=== PATIENT | male | born 1945 | race Caucasian/White ===

== ENCOUNTER 2018-02-28 14:48 | Emergency (ER) | payer OTHER, MEDICARE ==
[2018-02-28 15:49] LABS: ADD MAN DIFF? NO
[2018-02-28 15:51] LABS: BASO % 0 % (0-3); EOS # 0.2 x10^3/uL (0.0-0.7); EOS % 2 % (0-3); HEMATOCRIT 51.6 % (39.0-53.0); HEMOGLOBIN 17.7 g/dL (13.0-17.5); LYMPH # 1.3 x10^3/uL (1.0-4.8); LYMPH % 12 % (24-48); MEAN CORPUSCULAR HEMOGLOBIN 32 pg (25-35); MEAN CORPUSCULAR HGB CONC 34 g/dL (31-37); MEAN CORPUSCULAR VOLUME 92 fL (79-100); MONO # 0.7 x10^3/uL (0.0-1.1); MONO % 7 % (0-9); NEUT # 8.7 x10^3uL (1.8-7.7); NEUT % 80 % (31-73); PLATELET COUNT 200 x10^3/uL (140-400); RED BLOOD COUNT 5.61 x10^6/uL (4.30-5.70); RED CELL DISTRIBUTION WIDTH 13.6 % (11.5-14.5); WHITE BLOOD COUNT 10.9 x10^3/uL (4.0-11.0)
[2018-02-28 16:01] LABS: ANION GAP 5 (6-14); BLOOD UREA NITROGEN 14 mg/dL (8-26); BUN/CREATININE RATIO 12 (6-20); CALCIUM 9.2 mg/dL (8.5-10.1); CARBON DIOXIDE 31 mmol/L (21-32); CHLORIDE 103 mmol/L (98-107); CREATININE 1.2 mg/dL (0.7-1.3); GFR 59.9; GLUCOSE 121 mg/dL (70-99); SODIUM 139 mmol/L (136-145)
[2018-02-28 16:06] LABS: ALBUMIN 4.1 g/dL (3.4-5.0); ALBUMIN/GLOBULIN RATIO 1.2 (1.0-1.7); TOTAL PROTEIN 7.6 g/dL (6.4-8.2)
[2018-02-28 16:07] LABS: ALK PHOS 77 U/L (46-116); ALT (SGPT) 21 U/L (16-63); AST (SGOT) 17 U/L (15-37); TOTAL BILIRUBIN 1.2 mg/dL (0.2-1.0)
[2018-02-28 16:09] LABS: TROPONINI < 0.017 ng/mL (0.000-0.055)
== END 2018-02-28 17:35 | disposition home or self-care (01) ==
LOC: ER 14:48
DX: S09.90XA Unspecified injury of head, initial encounter (principal); M25.552 Pain in left hip; E11.9 Type 2 diabetes mellitus without complications; I25.2 Old myocardial infarction; Z90.49 Acquired absence of other specified parts of digestive tract; I25.10 Atherosclerotic heart disease of native coronary artery without angina pectoris; Z88.8 Allergy status to other drugs, medicaments and biological substances; W01.0XXA Fall on same level from slipping, tripping and stumbling without subsequent striking against object, initial encounter; Y93.89 Activity, other specified; Y99.8 Other external cause status; Y92.89 Other specified places as the place of occurrence of the external cause
CPT/HCPCS: 36415; 70450; 71045; 72125; 73502; 80053; 84484; 85025; 93005; 99285

== ENCOUNTER → 2018-07-19 | Outpatient (CLI) | payer MEDICARE, OTHER ==
[2018-05-21 11:00] VITALS: BP 143/86
[~2018-07-19] MED LIST: ASPI325T8 PO; ATOR20TA58 PO; CANA100T PO; CEFP200T PO; CLOP75TA PO; COLE625T12 PO; EMPA10TA PO; LISI-130 PO; LISI10TA2 PO; MELO15TA23 PO; METF500T16 PO; METO-239 PO; METO-269 PO; MULT-18 PO; OMEG1CAP6 PO; TEST200V3 IM; [UNRECOGNIZED DRUG - CODE] PO
--- NOTE | 2018-07-19 13:32 | KCIC ---
PQRS Compliance statement: One or more of the following individualized dose reduction techniques were utilized for this examination: 1. Automated exposure control. 2. Adjustment of the mA and/or kV according to patient size. 3. Use of iterative reconstruction technique. Indication:Hematuria. TECHNIQUE: CT abdomen and pelvis without IV contrast with multiplanar reformats. COMPARISON: 11/23/2004 FINDINGS: Limited evaluation of solid abdominal and pelvic organs due to lack of IV contrast. Heart is normal in size. No pericardial or pleural effusion. Clear lung bases. Noncontrast appearance of the liver, spleen, gallbladder, pancreas, adrenals within normal limits. No nephrolithiasis or hydronephrosis. No enlarged retroperitoneal or pelvic adenopathy. Small bilateral fat-containing inguinal hernia. Large amount of stool is seen in the rectosigmoid colon. No bowel obstruction. Urinary bladder shows no radiopaque stones. The prostate and seminal vesicles show no large mass. No pneumoperitoneum. No suspicious bony lesion. IMPRESSION: Limited evaluation of solid abdominal and pelvic organs due to lack of IV contrast. No nephrolithiasis or hydronephrosis. Electronically signed by: Nico Weber DO (07/19/2018 1:29 PM) [facility]
== END | disposition home or self-care (01) ==
LOC: KCIC CT 09:29
PROVIDERS: ATTEND Family Medicine
DX: R31.9 Hematuria, unspecified (principal); E11.9 Type 2 diabetes mellitus without complications; I10 Essential (primary) hypertension; Z79.01 Long term (current) use of anticoagulants
CPT/HCPCS: 74176

== ENCOUNTER → 2019-06-19 | Outpatient (CLI) | payer OTHER ==
[2018-05-21 11:00] VITALS: BP 143/86
[~2019-06-19] MED LIST changes: +CONTRAST GIVEN. MC PRN; +IOHEXOL 180 MG/ML 10 ML VIAL. IT ONE; +LIDOCAINE 1% Multi-Dose 20 ML VIAL. ID ONE
--- NOTE | 2019-06-19 16:32 | KCIC ---
Lumbar myelogram 06/19/2019 Clinical History: Low back pain which radiates down the right leg for one to 2 months. Technique: After the risks and benefits of the procedure were explained to the patient, written informed consent was obtained. The patient was placed prone on the fluoroscopy table and the lower back was prepped and draped in sterile fashion. 1% lidocaine was used as a local anesthetic. Under fluoroscopic guidance, the thecal sac of the lumbar cistern was punctured at the L4-5 level using 25-gauge Randi needle. After confirming clear CSF return, 18 cc of Omnipaque 180 were injected through the needle into the thecal sac of the lumbar cistern under fluoroscopic guidance. Following this the needle was removed and hemostasis achieved at the puncture site. A sterile bandage was placed on the skin puncture site. AP, bilateral oblique, lateral and standing neutral, flexion and extension lateral digital radiographs of the lumbar spine were obtained. Following this the patient was taken to CT where a CT scan of the lumbar spine was performed. This will be reported separately. Following the examinations the patient was sent home with an instruction sheet. The patient tolerated the procedure well and there were no immediate complications. The total fluoroscopic time for this procedure was 1 minute 6 seconds. 9 digital spot radiographs were obtained. Findings: Very mild S-shaped curvature of the thoracolumbar spine is seen. Degenerative changes consisting of varying degrees of disc space narrowing, vertebral endplate sclerosis and mild to moderate anterior and posterior vertebral body osteophyte formation are seen throughout the lumbar disc spaces. Mild anterior extradural defects are seen upon the contrast column at the L1-2 and L2-3 disc spaces. Moderate anterior and posterior extradural defects are seen upon the contrast column at the L3-4 and L4-5 levels. There is no evidence of complete block of contrast at any level involving the lumbar vertebrae. Degenerative changes are seen involving the facet joints throughout the mid and lower lumbar disc spaces. The alignment of the lumbar vertebrae is maintained on the flexion and extension images. IMPRESSION: Degenerative changes are seen throughout the lumbar spine as discussed above. Electronically signed by: Joaquin Jung MD (06/19/2019 4:29 PM) [email or web address]
--- NOTE | 2019-06-19 16:43 | KCIC ---
CT lumbar myelogram 06/19/2019 Clinical History: Low back pain which radiates down the right leg for the last 1-2 months. Technique: This study was performed after a lumbar myelogram, contiguous, 0.625 mm axial sections were obtained through the lumbar spine. 3 mm sagittal, coronal and axial reconstructed images were obtained. One or more of the following individualized dose reduction techniques were utilized for this study: 1. Automated exposure control. 2. Adjustment of the mA and/or kV according to patient size. 3. Use of iterative reconstruction technique. Findings: Comparison is made to the patient's lumbar myelogram performed earlier today. The sagittal and coronal reconstructed images demonstrate very mild S-shaped curvature of the thoracolumbar spine. Degenerative changes consisting of varying degrees of disc space narrowing, vertebral endplate sclerosis and mild to moderate anterior and posterior vertebral body osteophyte formation are seen throughout the lumbar disc spaces. Vacuum disc phenomenon are seen involving the L1-2, L2-3, L4-5 and L5-S1 discs. Atherosclerotic calcification of the abdominal aorta and its branches is noted. At the L1-2 disc space there is a mild to moderate generalized disc bulge. Degenerative changes are seen involving the facet joints bilaterally. There is mild ligament flavum hypertrophy bilaterally. These findings when combined result in mild to moderate central spinal canal stenosis. No neural foraminal stenosis is seen. At the L2-3 disc space is a moderate generalized disc bulge. This is eccentric to the left. Degenerative changes are seen involving the facet joints bilaterally. There is mild to moderate ligamentum flavum hypertrophy bilaterally. These findings when combined result in moderate to severe central spinal canal stenosis. Mild to moderate left greater than right neural foraminal stenosis is seen. At the L3-4 disc space there is a moderate generalized disc bulge. Degenerative changes are seen involving the facet joints bilaterally. There is mild to moderate ligamentum flavum hypertrophy bilaterally. These findings when combined result in moderate central spinal canal stenosis. Mild to moderate left greater than right neural foraminal stenosis is seen. At the L4-5 disc space there is a mild to moderate generalized disc bulge. Degenerative changes are seen involving the facet joints bilaterally. There is moderate ligamentum flavum hypertrophy bilaterally. These findings when combined result in mild central spinal canal stenosis. Moderate to severe right neural foraminal stenosis is seen. Mild to moderate left neural foraminal stenosis is noted. The L5-S1 disc space there is a mild to moderate generalized disc bulge. Degenerative changes are seen involving the facet joints bilaterally. Posterior vertebral body osteophyte formation is seen which extends into the neural foramen bilaterally. These findings when combined do not result in significant central spinal canal stenosis. Moderate bilateral neural foraminal stenosis is seen. Impression: The changes of degenerative disc disease are seen throughout the lumbar spine. These findings result in mild to moderate central spinal canal stenosis at L1-2, moderate to severe central spinal canal stenosis at L2-3, moderate central spinal canal stenosis at L3-4 and mild central spinal canal stenosis at L4-5. Mild to moderate left greater than right neural foraminal stenosis is seen at L2-3 and L3-4. Moderate to severe right neural foraminal stenosis is seen at L4-5. Mild to moderate left neural foraminal stenosis is seen at L4-5. Moderate bilateral neural foraminal stenosis is seen at L5-S1. Electronically signed by: Joaquin Jung MD (06/19/2019 4:40 PM) [email or web address]
== END | disposition home or self-care (01) ==
LOC: KCIC 09:02
PROVIDERS: ATTEND Family Medicine
DX: M47.896 Other spondylosis, lumbar region (principal); M25.78 Osteophyte, vertebrae; M54.41 Lumbago with sciatica, right side; I25.10 Atherosclerotic heart disease of native coronary artery without angina pectoris; M48.061 Spinal stenosis, lumbar region without neurogenic claudication; M51.36 Other intervertebral disc degeneration, lumbar region
CPT/HCPCS: 72132; 72265; Q9965

== ENCOUNTER → 2019-09-04 | Outpatient (CLI) | payer MEDICARE ==
[2018-05-21 11:00] VITALS: BP 143/86
[~2019-09-04] MED LIST changes: -CONTRAST GIVEN. MC PRN; +DOCU50CA9 PO; +EMPA25TA PO; -IOHEXOL 180 MG/ML 10 ML VIAL. IT ONE; -LIDOCAINE 1% Multi-Dose 20 ML VIAL. ID ONE; +METF10007 PO
--- NOTE | 2019-09-05 03:05 | CONS ---
DATE OF CONSULTATION: 09/04/2019 INITIAL CONSULTATION FOR PAIN CLINIC CHIEF COMPLAINT: Low back and right lower extremity pain. HISTORY OF PRESENT ILLNESS: This is a 74-year-old male who presents with history of pain in the low back, right lower extremity for about 1 year now. The patient reports no specific injury or accident he is aware of. 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 He has retired June this year and reports that the pain has been getting worse, it did come on at any time, usually with standing and walking, but also from standing from a sitting position. The patient describes the pain as constant, sharp, stabbing and shooting in the right lower extremity, posterior gluteus, lateral thigh, lateral anterior thigh, medial thigh, and to the medial knee on the right side only. The patient reports that it changes during the day with activity, worse with standing, walking, better with sitting, but can get worse with sitting at times, radiating to the right lower extremity. The patient reports it is aching and feels that it "locks up" in his right hip. The patient reports it generally awakens him from sleep; if it does, about twice a night, but not on most nights. The patient reports it does not affect his bowel or bladder control, does affect his ability to walk, but he is not using any assistive devices to ambulate. The patient has had epidural injections in the past, physical therapy as well as chiropractic treatment as recently as 2018 with physical therapy and chiropractic treatment ongoing. The patient reports these do help by about 20%. The patient was taking ibuprofen as well, which helps only very minimally. The patient did have a CT myelogram as he was not able for an MRI as he has a stent in his right iliac artery showing L4-L5 disk space with [id number] generalized disk bulge with mild central stenosis and [id number] right neural foraminal stenosis and [id number] left foraminal stenosis. L5-S1 shows vmks-et-fvyyuizq generalized disk bulge as well without significant stenosis but moderate bilateral neuroforaminal stenosis was seen. The patient rates his disability from 0-10, 10 being the worst, is a 6 on 10 with home responsibilities or recreation, 7 with social activity and occupation, 9 with sexual behavior, 7 with self-care and 7 with life support activities. PAST MEDICAL HISTORY: Significant for diabetes, hypertension, myocardial infarction x 2 with stent placement, difficulty urinating, dizziness, arthritis. PREVIOUS SURGERY: Include urethroplasty, tonsillectomy and cardiac stents placed 2000, 2002 and 2017. CURRENT MEDICATIONS: Include metformin, Jardiance, testosterone, stool softener, lisinopril, atorvastatin, clopidogrel, metoprolol, daily baby aspirin, fish oil and flaxseed. ALLERGIES: THE PATIENT IS ALLERGIC TO NIASPAN. FAMILY HISTORY: Significant for diabetes and cancer. SOCIAL HISTORY: The patient does not drink alcohol, does not smoke. Does not use any illegal, illicit or recreational drugs. Recently retired, is , lives with his spouse, lives locally in [place], [place]. REVIEW OF SYSTEMS: The patient's review of systems is positive for those items mentioned in history of present illness. All systems reviewed and otherwise negative. It is complete, full and well documented on the patient's chart. PHYSICAL EXAMINATION: VITAL SIGNS: The patient's blood pressure is 109/87, pulse 67, respirations 18, temperature 98.5 degrees Fahrenheit, height is 5 feet 10 inches, weight is 200 pounds. GENERAL: The patient is awake, alert, oriented, appropriate, very pleasant demeanor. HEENT: Head normocephalic, atraumatic. Extraocular movements are intact and symmetrical. Oral cavity, mucous membranes are moist and pink. Dentition is intact. NECK: Shows anterior throat supple without palpable lymphadenopathy noted. Swallow reflex is symmetrical. CHEST: Shows normal on inspection. Breath sounds clear to auscultation bilaterally. HEART: Shows S1, S2 clear. No murmurs auscultated. ABDOMEN: Soft, nontender, nondistended. No palpable organomegaly is noted. No rebound or guarding demonstrated. BACK: Shows spine grossly in the midline. Normal appearing thoracic kyphosis and minor flattening of lumbar lordotic curvature. Lumbar paraspinous muscle shows symmetrical on inspection, on palpation some tenderness diffusely throughout the upper, middle and lower distribution of paraspinous muscles bilaterally, but only diffusely without radiation. EXTREMITIES: The patient's lower extremities show deep tendon reflexes 1+ in the patellar and tendo calcaneus tendons. Motor exam is 4 on a scale of 5 with right dorsiflexion, extension and 5/5 on the left. Quadriceps and hamstring flexion, likewise, 4/5 on the right, 5/5 on the left. Peripheral pulses are 1+ posterior tibia. No peripheral edema is noted. Lower extremities are warm and dry to touch, equal in color and appearance. Straight leg raise noted to be mildly positive on the right, about 45 degrees, decreased with knee flexion, left side is negative. Gaenslen's and Cecilio's maneuvers are negative bilaterally. The patient is able to alfredo on his toes without significant difficulty or loss of balance, walks with a normal appearing gait, does not appear to favor the right or left lower extremity significantly, not using any assistive devices to ambulate. SKIN: Shows warm and dry, good turgor. No edema. No sores, rashes throughout. IMPRESSION: 1. This is a 74-year-old male with approximately 1-year history of increasing pain in the low back and the right lower extremity in a radicular fashion. 2. MRI scan of lumbar spine as noted. 3. Diabetes. 4. Arthritis. 5. Coronary artery disease with Plavix use. PLAN: Options were discussed with the patient including conservative medical managements, continued physical therapies and chiropractic treatment as well as interventional techniques. He would like to pursue interventional techniques. We discussed a lumbar epidural steroid injection using description as well as anatomical models to describe the procedure. 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 The patient will continue to take this until a word back from Dr. Hines, and if deemed safe and appropriate to hold the Plavix, we will let him hold this for a lumbar epidural steroid injection on return. JOSE SINGH MD DR: JESUS/dung JOB#: [id number] / [id number] Brayden Monte MD
== END | disposition home or self-care (01) ==
LOC: PNCL 11:13
PROVIDERS: ATTEND Anesthesiology
DX: M54.5 Low back pain (principal); M79.604 Pain in right leg; I10 Essential (primary) hypertension; E11.9 Type 2 diabetes mellitus without complications; I25.2 Old myocardial infarction; I25.10 Atherosclerotic heart disease of native coronary artery without angina pectoris; M19.90 Unspecified osteoarthritis, unspecified site; Z79.82 Long term (current) use of aspirin; Z79.899 Other long term (current) drug therapy; Z79.891 Long term (current) use of opiate analgesic; Z88.8 Allergy status to other drugs, medicaments and biological substances
CPT/HCPCS: G0463

== ENCOUNTER → 2019-09-18 | Outpatient (CLI) | payer MEDICARE ==
[2018-05-21 11:00] VITALS: BP 143/86
[~2019-09-18] MED LIST changes: +IOHEXOL 180 MG/ML 10 ML VIAL. ONE; +methylPREDNISolone ACETATE 40 MG/ML VIAL. ONE; +methylPREDNISolone ACETATE 80 MG/ML VIAL. ONE
--- NOTE | 2019-09-18 12:07 | PAIN ---
DATE OF SERVICE: 09/18/2019 PROGRESS NOTE FOR PAIN CLINIC DIAGNOSES: Lumbar radiculopathy with lumbar degenerative disk disease, lumbar spinal stenosis. HISTORY OF PRESENT ILLNESS: The patient is a 74-year-old male who returns for followup status post initial evaluation and holding his Plavix. 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 Returns today in still significant pain in the low back, right lower extremity, posterior gluteus, posterolateral thigh, lateral anterior thigh, anterior medial thigh, medial lower leg. The patient reports aching, sharp, shooting, stabbing, cramping, on and off in intensity, worse with walking, standing, better with sitting or lying down, does not awaken him from sleep at night. The patient reports a 10 on a scale of 10 at its worst in the past week, a 6 on average, 4 this week and is a 4 today. The patient reports it is worse with activity. 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 The patient reports no new motor or sensory deficits, no new bowel or bladder incontinence or other complaints. PHYSICAL EXAMINATION: VITAL SIGNS: The patient's blood pressure 142/89, pulse 68, respirations 18, temperature 95.8 degrees Fahrenheit, height is 5 feet 10 inches, weight is 250 pounds. GENERAL: The patient is awake, alert, oriented, appropriate, very pleasant demeanor. HEENT: Shows normocephalic, atraumatic. Extraocular movements are intact and symmetrical. Oral cavity shows mucous membranes moist and pink. Dentition is intact. NECK: Shows anterior throat supple without palpable lymphadenopathy noted. Swallow reflex symmetrical. CHEST: Shows normal on inspection. Breath sounds clear bilaterally. HEART: Shows S1, S2 clear. No murmurs auscultated. ABDOMEN: Soft, nontender, nondistended. No palpable organomegaly is noted. No rebound or guarding demonstrated. BACK: Shows spine grossly in the midline. Normal appearing thoracic kyphosis and minor flattening of lumbar lordotic curvature. Lumbar paraspinous muscle shows symmetrical on inspection. On palpation shows some moderate tenderness bilaterally and diffusely without significant radiation. EXTREMITIES: The patient's lower extremities show deep tendon reflexes 1+ in the patellar and tendo calcaneus tendons. Motor exam is strong with approximately 4 on a scale of 5 on the right and 5/5 on the left dorsiflexion, extension, quadriceps and hamstring flexion. Peripheral pulses are 1+ posterior tibia. No peripheral edema is noted bilaterally. Options were discussed with the patient. The patient's old chart was reviewed, his current medication regimen has been updated, current review of systems is updated today as well. We will proceed with a lumbar epidural steroid injection today with fluoroscopic guidance. Risks were again discussed including, but not limited to bleeding, infection, possibility of epidural hematoma, subsequent neurological compromise, dural puncture, headaches, spinal cord and/or nerve damage, side effects of steroid medication and poor results regarding pain control. The patient understands and wished to proceed. The patient will return to clinic in approximately 2 weeks for followup. He was counseled on return appointment, activity level and side effects to be aware of. DIAGNOSES: Lumbar radiculopathy with lumbar degenerative disk disease, lumbar spinal stenosis. PROCEDURE: Lumbar epidural steroid injection, translaminar approach at L4-L5 level using C-arm fluoroscopic guidance under sterile prep and drape using local anesthetic. MEDICATION INJECTED: A total of 120 mg Depo-Medrol plus 10 mL of preservative-free normal saline and 2 mL of contrast. CONDITION AT DISCHARGE: Stable. The patient tolerated the procedure well, had no complications. JOSE SINGH MD DR: JESUS/dung JOB#: [id number] / [id number]
== END ==
LOC: PNCL 09:50
PROVIDERS: ATTEND Anesthesiology
DX: M51.16 Intervertebral disc disorders with radiculopathy, lumbar region (principal); M48.061 Spinal stenosis, lumbar region without neurogenic claudication
CPT/HCPCS: 62323; J1030; J1040; Q9965